=== PATIENT | female | born 2000 | race Hispanic/Latino ===

== ENCOUNTER 2022-05-09 00:21 | Emergency (ER) | payer OTHER ==
[~2022-05-09] VITALS: Ht 154.9 cm; Wt 59.0 kg
[2022-05-09 00:36] VITALS: BP 127/74
== END 2022-05-09 01:14 | disposition left against medical advice (07) ==
LOC: EDH 00:21
DX: F22 Delusional disorders (principal); Z53.21 Procedure and treatment not carried out due to patient leaving prior to being seen by health care provider
CPT/HCPCS: 99281

== ENCOUNTER 2022-07-27 14:35 | Emergency (ER) | payer MEDICARE ==
[~2022-07-27] VITALS: Ht 160 cm; Wt 72.6 kg
[2022-07-27] MEDS ORDERED: 0.9%NACL 1000ML 1,000 ML IV ONE (15:00)
[2022-07-27 15:30] LABS: BASOPHILS % (AUTO) 0.3 % (0.0-5.0); EOSINOPHILS % (AUTO) 0.1 % (0.0-8.0); HEMATOCRIT 43.1 % (36-48); LYMPHOCYTES % (AUTO) 9.9 % (21.0-51.0); MEAN CORPUSCULAR HEMOGLOBIN 29.9 pg (27.0-33.0); MEAN CORPUSCULAR HGB CONC 32.9 g/dL (32.0-36.0); MEAN CORPUSCULAR VOLUME 90.7 fL (80-100); MONOCYTES % (AUTO) 5.2 % (3.0-13.0); NEUTROPHILS % (AUTO) 84.1 % (40.0-77.0); PLATELET COUNT (AUTO) 399 K/uL (130-400); RED BLOOD CELL COUNT(AUTO) 4.75 MIL/uL (4.00-5.50); RED CELL DISTRIBUTION WIDTH 11.9 % (11.0-15.5); WHITE BLOOD COUNT (AUTO) 11.4 K/uL (4.8-10.8)
[2022-07-27 15:49] LABS: CARBON DIOXIDE 24 mmol/L (21-32); CHLORIDE 103 mmol/L (101-111); CREATININE 1.2 mg/dL (0.5-1.5); GLOMERULAR FILTR. RATE CALC 66 mL/min (>90); GLUCOSE,RANDOM 145 mg/dL (70-105); POTASSIUM 3.8 mmol/L (3.5-5.1); SODIUM SERUM 139 mmol/L (136-145); UREA NITROGEN, BLOOD 8 mg/dL (7-18)
[2022-07-27 15:53] LABS: ALANINE AMINOTRANSFERASE 21 U/L (12-78); ALBUMIN 4.9 g/dL (3.5-5.0); ASPARTATE AMINOTRANSFERASE 11 U/L (10-37); TOTAL PROTEIN, SERUM 8.3 g/dL (6.0-8.3)
[2022-07-27 16:08] LABS: APPEARANCE,URINE CLOUDY (CLEAR); BILIRUBIN,URINE NEGATIVE (NEGATIVE); COLOR,URINE LIGHT-YELLOW (YELLOW); GLUCOSE, URINE (UA) NEGATIVE (NEGATIVE); KETONES,URINE NEGATIVE (NEGATIVE); LEUKOCYTE ESTERASE ,URINE 250 Leu/uL (NEGATIVE); NITRATE,URINE NEGATIVE (NEGATIVE); OCCULT BLOOD,URINE NEGATIVE (NEGATIVE); PH,URINE 7.5 (5.0-8.0); PROTEIN,URINE NEGATIVE (NEGATIVE); UROBILINOGEN,URINE 0.2 mg/dL (0.2-1.0)
[2022-07-27 16:14] LABS: ACETAMINOPHEN < 10 mcg/mL (10-30); SALICYLATE < 2.8 mg/dL (2.8-20.0)
[2022-07-27 16:14] LABS: AMPHET/METH SCREEN,URINE NEGATIVE (NEGATIVE); BARBITURATE SCREEN, URINE NEGATIVE (NEGATIVE); BENZODIAZEPINES SCREEN,URINE NEGATIVE (NEGATIVE); CANNABINOID SCREEN,URINE NEGATIVE (NEGATIVE); COCAINE SCREEN,URINE NEGATIVE (NEGATIVE); OPIATE SCREEN,URINE NEGATIVE (NEGATIVE); PHENCYCLIDINE SCREEN,URINE NEGATIVE (NEGATIVE)
[2022-07-27 16:36] LABS: BACTERIA,URINE FEW /HPF (None Seen); SQUAMOUS EPITHELIAL CELL,UR MANY /HPF (0-2)
[2022-07-27] MEDS ORDERED: CEPH500C2 PO (16:42)
[2022-07-27 17:56] VITALS: BP 123/78
== END 2022-07-27 18:35 | disposition home or self-care (01) ==
LOC: EDH 14:35
DX: N39.0 Urinary tract infection, site not specified (principal); E86.0 Dehydration; F20.9 Schizophrenia, unspecified
CPT/HCPCS: 99283; 96360; 96361; 80053; 80305; 84703; 85025; 87088; 36415; 81001; G0481; J7030

== ENCOUNTER 2022-08-15 17:56 | Emergency (ER) | payer MEDICARE ==
[~2022-08-15] VITALS: Ht 152.4 cm; Wt 46.7 kg
[~2022-08-15 17:56] MED LIST: CEPH500C2 PO
[2022-08-15 18:43] LABS: APPEARANCE,URINE CLEAR (CLEAR); BILIRUBIN,URINE NEGATIVE (NEGATIVE); COLOR,URINE COLORLESS (YELLOW); GLUCOSE, URINE (UA) NEGATIVE (NEGATIVE); KETONES,URINE NEGATIVE (NEGATIVE); LEUKOCYTE ESTERASE ,URINE NEGATIVE Leu/uL (NEGATIVE); NITRATE,URINE NEGATIVE (NEGATIVE); OCCULT BLOOD,URINE MODERATE (NEGATIVE); PH,URINE 7.5 (5.0-8.0); PROTEIN,URINE NEGATIVE (NEGATIVE); UROBILINOGEN,URINE 0.2 mg/dL (0.2-1.0)
[2022-08-15 18:49] LABS: HCG,QUALITATIVE URINE NEGATIVE (NEGATIVE)
[2022-08-15 18:54] LABS: BACTERIA,URINE RARE /HPF (None Seen); RBC,URINE 0-1 /HPF (0-1); SQUAMOUS EPITHELIAL CELL,UR RARE /HPF (0-2)
[2022-08-15] MEDS ORDERED: ONDANSETRON ODT 4MG TAB SL ONE (20:30)
[2022-08-15 20:54] LABS: BASOPHILS % (AUTO) 0.4 % (0.0-5.0); EOSINOPHILS % (AUTO) 1.1 % (0.0-8.0); LYMPHOCYTES % (AUTO) 34.7 % (21.0-51.0); MEAN CORPUSCULAR HEMOGLOBIN 30.2 pg (27.0-33.0); MEAN CORPUSCULAR HGB CONC 33.3 g/dL (32.0-36.0); MEAN CORPUSCULAR VOLUME 90.7 fL (80-100); MONOCYTES % (AUTO) 8.5 % (3.0-13.0); NEUTROPHILS % (AUTO) 54.9 % (40.0-77.0); PLATELET COUNT (AUTO) 330 K/uL (130-400); RED BLOOD CELL COUNT(AUTO) 4.41 MIL/uL (4.00-5.50); RED CELL DISTRIBUTION WIDTH 12.1 % (11.0-15.5); WHITE BLOOD COUNT (AUTO) 8.2 K/uL (4.8-10.8)
[2022-08-15 21:14] LABS: CREATININE 0.8 mg/dL (0.5-1.5); POTASSIUM 3.4 mmol/L (3.5-5.1)
[2022-08-15 21:21] LABS: ALBUMIN 4.1 g/dL (3.5-5.0); TOTAL PROTEIN, SERUM 7.5 g/dL (6.0-8.3)
[2022-08-15] MEDS ORDERED: ONDA-104 PO (21:38)
[2022-08-15 21:40] VITALS: BP 112/65
== END 2022-08-15 21:44 | disposition home or self-care (01) ==
LOC: EDH 17:56
DX: T43.211A Poisoning by selective serotonin and norepinephrine reuptake inhibitors, accidental (unintentional), initial encounter (principal); R11.2 Nausea with vomiting, unspecified; F20.9 Schizophrenia, unspecified; F32.A Depression, unspecified; F41.9 Anxiety disorder, unspecified; Z59.00 Homelessness unspecified; Z59.7 Insufficient social insurance and welfare support; Y92.89 Other specified places as the place of occurrence of the external cause
CPT/HCPCS: 36415; 80053; 81001; 81025; 85025

== ENCOUNTER 2022-09-06 13:17 | Emergency (ER) | payer MEDICARE ==
[~2022-09-06] VITALS: Ht 149.9 cm; Wt 63.5 kg
[~2022-09-06 13:17] MED LIST changes: +BENZ0.5T6 PO; +BREX0.5T PO; -CEPH500C2 PO; +HYDR-3421 PO; +LEVE500T19 PO; +PROP40TA7 PO
[2022-09-06 14:17] LABS: CREATININE 1.1 mg/dL (0.5-1.5); POTASSIUM 4.2 mmol/L (3.5-5.1)
[2022-09-06 14:22] LABS: ALBUMIN 4.2 g/dL (3.5-5.0); TOTAL PROTEIN, SERUM 7.7 g/dL (6.0-8.3)
[2022-09-06 14:23] LABS: CREATINE KINASE, TOTAL 310 U/L (21-232)
[2022-09-06 14:29] LABS: ACETAMINOPHEN < 1 mcg/mL (10-30); SALICYLATE < 2.8 mg/dL (2.8-20.0)
[2022-09-06 14:31] LABS: APPEARANCE,URINE CLEAR (CLEAR); BILIRUBIN,URINE NEGATIVE (NEGATIVE); COLOR,URINE LIGHT-YELLOW (YELLOW); GLUCOSE, URINE (UA) NEGATIVE (NEGATIVE); KETONES,URINE NEGATIVE (NEGATIVE); LEUKOCYTE ESTERASE ,URINE 25 Leu/uL (NEGATIVE); NITRATE,URINE NEGATIVE (NEGATIVE); OCCULT BLOOD,URINE NEGATIVE (NEGATIVE); PROTEIN,URINE NEGATIVE (NEGATIVE); UROBILINOGEN,URINE 0.2 mg/dL (0.2-1.0)
[2022-09-06 14:39] LABS: AMPHET/METH SCREEN,URINE NEGATIVE (NEGATIVE); BARBITURATE SCREEN, URINE NEGATIVE (NEGATIVE); BENZODIAZEPINES SCREEN,URINE NEGATIVE (NEGATIVE); CANNABINOID SCREEN,URINE NEGATIVE (NEGATIVE); COCAINE SCREEN,URINE NEGATIVE (NEGATIVE); OPIATE SCREEN,URINE NEGATIVE (NEGATIVE); PHENCYCLIDINE SCREEN,URINE NEGATIVE (NEGATIVE)
[2022-09-06 14:50] LABS: BASOPHILS % (AUTO) 0.3 % (0.0-5.0); EOSINOPHILS % (AUTO) 2.5 % (0.0-8.0); HEMATOCRIT 42.3 % (36-48); LYMPHOCYTES % (AUTO) 12.5 % (21.0-51.0); MEAN CORPUSCULAR HEMOGLOBIN 30.6 pg (27.0-33.0); MEAN CORPUSCULAR HGB CONC 32.6 g/dL (32.0-36.0); MEAN CORPUSCULAR VOLUME 93.8 fL (80-100); MONOCYTES % (AUTO) 4.8 % (3.0-13.0); NEUTROPHILS % (AUTO) 79.3 % (40.0-77.0); PLATELET COUNT (AUTO) 361 K/uL (130-400); RED BLOOD CELL COUNT(AUTO) 4.51 MIL/uL (4.00-5.50); RED CELL DISTRIBUTION WIDTH 12.5 % (11.0-15.5); WHITE BLOOD COUNT (AUTO) 13.6 K/uL (4.8-10.8)
[2022-09-06 14:58] LABS: BACTERIA,URINE FEW /HPF (None Seen); MUCUS,URINE RARE LPF (None Seen); RBC,URINE 0-1 /HPF (0-1); SQUAMOUS EPITHELIAL CELL,UR FEW /HPF (0-2)
[2022-09-06] MEDS ORDERED: LORAZEPAM 2 MG/ML 1 ML VIAL ONE (15:08)
[2022-09-06] MEDS ORDERED: LORAZEPAM 2 MG/ML 1 ML VIAL IVP ONE (15:30)
[2022-09-06 18:28] VITALS: BP 136/87
== END 2022-09-06 18:53 | disposition home or self-care (01) ==
LOC: EDH 13:17
DX: F99 Mental disorder, not otherwise specified (principal); F31.9 Bipolar disorder, unspecified
CPT/HCPCS: 99284; 82550; 80053; 80305; 85025; 81001; 36415; 96374; 93005; G0481; J2060

== ENCOUNTER 2023-01-21 19:53 | Emergency (ER) | payer MEDICARE ==
[~2023-01-21] VITALS: Ht 157.5 cm; Wt 72.6 kg
[2023-01-21] MEDS ORDERED: ACETAMINOPHEN 500 MG TABLET PO ONE (21:00)
[2023-01-21 21:03] LABS: BASOPHILS # (AUTO) 0.04 K/uL (0.00-0.20); BASOPHILS % (AUTO) 0.4 % (0.0-5.0); EOSINOPHILS # (AUTO) 0.23 K/uL (0.00-0.70); EOSINOPHILS % (AUTO) 2.1 % (0.0-8.0); HEMATOCRIT 44.6 % (36-48); IMMATURE GRANULOCYTE ABSOLUTE 0.05 K/uL (0-1); LYMPHOCYTES # (AUTO) 3.1 K/uL (1.0-4.8); LYMPHOCYTES % (AUTO) 27.8 % (21.0-51.0); MEAN CORPUSCULAR HEMOGLOBIN 30.5 pg (27.0-33.0); MEAN CORPUSCULAR HGB CONC 33.6 g/dL (32.0-36.0); MEAN CORPUSCULAR VOLUME 90.7 fL (80-100); MONOCYTES # (AUTO) 0.6 K/uL (0.1-1.0); MONOCYTES % (AUTO) 5.6 % (3.0-13.0); NEUTROPHILS % (AUTO) 63.6 % (40.0-77.0); PLATELET COUNT (AUTO) 376 K/uL (130-400); RED BLOOD CELL COUNT(AUTO) 4.92 MIL/uL (4.00-5.50); RED CELL DISTRIBUTION WIDTH 12.6 % (11.0-15.5)
[2023-01-21 21:12] LABS: CREATININE 0.9 mg/dL (0.5-1.5); POTASSIUM 3.6 mmol/L (3.5-5.1)
[2023-01-21 21:17] LABS: ALBUMIN 4.2 g/dL (3.5-5.0); BILIRUBIN,TOTAL 0.5 mg/dL (0.2-1.0); TOTAL PROTEIN, SERUM 8.5 g/dL (6.0-8.3)
[2023-01-21 22:21] VITALS: BP 134/56; PULSE 98; RESP 18; O2SAT 100
== END 2023-01-21 22:21 | disposition home or self-care (01) ==
LOC: EDH 19:53
DX: F20.9 Schizophrenia, unspecified (principal); R51.9 Headache, unspecified; R56.9 Unspecified convulsions; Z79.899 Other long term (current) drug therapy
CPT/HCPCS: 36415; 80053; 84703; 85025

== ENCOUNTER 2023-04-26 07:28 | Emergency (ER) | payer OTHER, MEDICARE ==
[~2023-04-26] VITALS: Ht 157.5 cm; Wt 85.3 kg
[2023-04-26] MEDS: ACETAMINOPHEN 500 MG TABLET PO ONE (09:43)
[2023-04-26] MEDS: CYCLOBENZAPRINE HCL 10 MG TABLET PO ONE (09:43)
[2023-04-26] MEDS ORDERED: CYCL-309 PO (10:23)
[2023-04-26 10:47] VITALS: BP 111/63; PULSE 82; RESP 18; O2SAT 100
== END 2023-04-26 10:51 | disposition home or self-care (01) ==
LOC: EDH 07:28
DX: S39.012A Strain of muscle, fascia and tendon of lower back, initial encounter (principal); F20.9 Schizophrenia, unspecified; Z79.899 Other long term (current) drug therapy; V89.2XXA Person injured in unspecified motor-vehicle accident, traffic, initial encounter; Y93.89 Activity, other specified; Y92.89 Other specified places as the place of occurrence of the external cause; Y99.8 Other external cause status
CPT/HCPCS: 72100

== ENCOUNTER 2023-09-29 17:31 | Emergency (ER) | payer MEDICARE ==
[~2023-09-29] VITALS: Ht 154.9 cm; Wt 68.0 kg
[~2023-09-29 17:31] MED LIST changes: +BENZ0.5T44 PO; -BENZ0.5T6 PO; +CYCL-309 PO
[2023-09-29 18:11] LABS: BASOPHILS # (AUTO) 0.02 K/uL (0.00-0.20); BASOPHILS % (AUTO) 0.2 % (0.0-5.0); HEMATOCRIT 39.1 % (36-48); IMMATURE GRANULOCYTE ABSOLUTE 0.05 K/uL (0-1); LYMPHOCYTES # (AUTO) 2.6 K/uL (1.0-4.8); LYMPHOCYTES % (AUTO) 26.7 % (21.0-51.0); MEAN CORPUSCULAR HEMOGLOBIN 29.5 pg (27.0-33.0); MEAN CORPUSCULAR HGB CONC 33.8 g/dL (32.0-36.0); MEAN CORPUSCULAR VOLUME 87.3 fL (80-100); MONOCYTES # (AUTO) 0.7 K/uL (0.1-1.0); MONOCYTES % (AUTO) 7.5 % (3.0-13.0); NEUTROPHILS # (AUTO) 6.2 K/uL (1.8-7.7); NEUTROPHILS % (AUTO) 63.1 % (40.0-77.0); PLATELET COUNT (AUTO) 349 K/uL (130-400); RED BLOOD CELL COUNT(AUTO) 4.48 MIL/uL (4.00-5.50); RED CELL DISTRIBUTION WIDTH 12.3 % (11.0-15.5); WHITE BLOOD COUNT (AUTO) 9.9 K/uL (4.8-10.8)
[2023-09-29 18:23] LABS: POTASSIUM 3.9 mmol/L (3.5-5.1)
[2023-09-29 19:37] VITALS: BP 127/76; PULSE 103; RESP 18; O2SAT 100
== END 2023-09-29 20:50 | disposition home or self-care (01) ==
LOC: EDH 17:31
DX: R42 Dizziness and giddiness (principal); Z79.899 Other long term (current) drug therapy
CPT/HCPCS: 36415; 80048; 84703; 85025

== ENCOUNTER 2023-12-25 12:55 | Emergency (ER) | payer MEDICARE ==
[~2023-12-25] VITALS: Ht 152.4 cm; Wt 68.0 kg
[2023-12-25] MEDS: metoCLOPRAmide 10 MG/2 ML VIAL IV ONE (14:18)
[2023-12-25] MEDS: 0.9%NACL 1000ML 1,000 ML IV ONE (14:18)
[2023-12-25 14:19] LABS: BASOPHILS # (AUTO) 0.04 K/uL (0.00-0.20); BASOPHILS % (AUTO) 0.3 % (0.0-5.0); EOSINOPHILS # (AUTO) 0.25 K/uL (0.00-0.70); EOSINOPHILS % (AUTO) 1.9 % (0.0-8.0); HEMATOCRIT 40.5 % (36-48); IMMATURE GRANULOCYTE ABSOLUTE 0.05 K/uL (0-1); LYMPHOCYTES # (AUTO) 2.8 K/uL (1.0-4.8); LYMPHOCYTES % (AUTO) 21.1 % (21.0-51.0); MEAN CORPUSCULAR HEMOGLOBIN 28.6 pg (27.0-33.0); MEAN CORPUSCULAR HGB CONC 32.8 g/dL (32.0-36.0); MEAN CORPUSCULAR VOLUME 87.1 fL (79-99); MONOCYTES # (AUTO) 0.8 K/uL (0.1-1.0); NEUTROPHILS # (AUTO) 9.2 K/uL (1.8-7.7); NEUTROPHILS % (AUTO) 70.3 % (40.0-77.0); PLATELET COUNT (AUTO) 214 K/uL (130-400); RED BLOOD CELL COUNT(AUTO) 4.65 MIL/uL (4.00-5.50); RED CELL DISTRIBUTION WIDTH 12.4 % (11.0-15.5); WHITE BLOOD COUNT (AUTO) 13.1 K/uL (4.8-10.8)
[2023-12-25 14:32] LABS: CREATININE 0.8 mg/dL (0.5-1.0); POTASSIUM 3.8 mmol/L (3.5-5.1)
[2023-12-25] MEDS ORDERED: DICY20TA2 PO (15:30)
[2023-12-25 15:35] VITALS: BP 126/78; PULSE 99; RESP 20; TEMP 98.3; O2SAT 98
== END 2023-12-25 16:06 | disposition home or self-care (01) ==
LOC: EDH 12:55
DX: E86.0 Dehydration (principal); K52.9 Noninfective gastroenteritis and colitis, unspecified; Z79.899 Other long term (current) drug therapy
CPT/HCPCS: 99283; 96374; 96361; 80048; 83690; 85025; 36415; J7030; J2765

== ENCOUNTER 2023-12-31 20:00 | Emergency (ER) | payer MEDICARE ==
[~2023-12-31] VITALS: Ht 154.9 cm; Wt 88.5 kg
[~2023-12-31 20:00] MED LIST changes: +DICY20TA2 PO
[2023-12-31 20:23] VITALS: BP 150/91; PULSE 96; RESP 16; TEMP 98.3; O2SAT 100
[2023-12-31] MEDS ORDERED: ONDA-243 PO (20:25)
[2023-12-31] MEDS: DICYCLOMINE HCL 20 MG TAB PO ONE (20:54)
[2023-12-31] MEDS: ondanSETRON ODT 4MG TAB SL ONE (20:54)
[2023-12-31] MEDS: acetaMINOPHEN 500 MG TABLET PO ONE (20:55)
== END 2023-12-31 21:01 | disposition home or self-care (01) ==
LOC: EDH 20:00
DX: K52.9 Noninfective gastroenteritis and colitis, unspecified (principal); F31.9 Bipolar disorder, unspecified; F41.9 Anxiety disorder, unspecified; Z79.899 Other long term (current) drug therapy
CPT/HCPCS: 81025

== ENCOUNTER 2024-02-09 12:03 | Emergency (ER) | payer OTHER, MEDICARE ==
[~2024-02-09] VITALS: Ht 149.9 cm; Wt 65.8 kg
[~2024-02-09 12:03] MED LIST changes: +ONDA-243 PO
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
[2024-02-09] MEDS: acetaMINOPHEN 500 MG TABLET PO ONE (12:40)
[2024-02-09] MEDS ORDERED: IBUP-2077 PO (14:36)
[2024-02-09] MEDS ORDERED: CYCL-309 PO (14:36)
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
[2024-02-09 15:01] VITALS: BP 113/78; PULSE 89; RESP 16; TEMP 98.4; O2SAT 98
== END 2024-02-09 15:03 | disposition home or self-care (01) ==
LOC: EDH 12:03
DX: S16.1XXA Strain of muscle, fascia and tendon at neck level, initial encounter (principal); S39.012A Strain of muscle, fascia and tendon of lower back, initial encounter; F31.9 Bipolar disorder, unspecified; Z79.899 Other long term (current) drug therapy; V49.9XXA Car occupant (driver) (passenger) injured in unspecified traffic accident, initial encounter; Y93.89 Activity, other specified; Y92.488 Other paved roadways as the place of occurrence of the external cause; Y99.8 Other external cause status
CPT/HCPCS: 36415; 72040; 72100; 81025; 99284

== ENCOUNTER 2024-04-06 23:13 | Emergency (ER) | payer MEDICARE ==
[~2024-04-06] VITALS: Ht 154.9 cm; Wt 70.3 kg
[~2024-04-06 23:13] MED LIST changes: +IBUP-2077 PO
[2024-04-06 23:14] VITALS: BP 133/80; PULSE 80; RESP 20; TEMP 99.6
[2024-04-06] MEDS ORDERED: AZIT250T9 PO (23:46)
[2024-04-06] MEDS ORDERED: METH4TAB3 PO (23:46)
--- NOTE | 2024-04-06 23:46 | ERN ---
General Chief Complaint: Cough Stated Complaint: COUGH Time Seen by MD: 23:18 Time Seen by Midlevel: 23:18 Source: patient History of Present Illness Initial Comments Patient is a 23-year-old female presenting to the emergency department for evaluation of a cough that has been ongoing for the last week. No fever, chills, or any other symptoms reported at this time. Patient reports her partner is sick with similar symptoms. Patient has not seen a primary care doctor for this issue and has not taken any [id number] medications. Allergies: Coded Allergies: No Known Drug Allergies (Unverified Allergy, Unknown, 07/27/22) Home Meds Active Scripts Methylprednisolone (Medrol) 4 Mg Tab.ds.pk, 1 TAB PO AD for 6 Days, #21 TAB 0 Refills 6 on day 1 then reduce by one tablet daily until gone Prov:IRENE CASTELLON 04/06/24 Azithromycin (Azithromycin) 250 Mg Tablet, 1 TAB PO AD for 5 Days, #6 TAB 0 Refills 2 the first day followed by 1 for days 2-5 Prov:IRENE CASTELLON 04/06/24 Ibuprofen (Ibuprofen 800 mg Tab) 800 Mg Tab, 800 MG PO Q8H PRN for fever or pain, #30 TAB 0 Refills Prov:TERESITA SHELTON NP 02/09/24 Cyclobenzaprine HCl (Cyclobenzaprine HCl) 10 Mg Tablet, 1 TAB PO TID for muscle spasms for 10 Days, #30 TAB 0 Refills Prov:TERESITA SHELTON NP 02/09/24 Ondansetron (Ondansetron Odt) 4 Mg Tab.rapdis, 1 TAB PO Q6HPRN PRN for nausea/vomiting for 3 Days, #9 TAB 0 Refills Prov:ERICKA CARDOZA DO 12/31/23 Dicyclomine HCl (Bentyl) 20 Mg Tab, 1 TAB PO BID for irritable bowel symptoms for 5 Days, #10 TAB 0 Refills Prov:KALPESH HERNANDEZ MD 12/25/23 Cyclobenzaprine HCl (Cyclobenzaprine HCl) 10 Mg Tablet, 10 MG PO Q6HPRN for MUSCLE SPASM, #30 TAB Prov:TERESITA SHELTON NP 04/26/23 Hydroxyzine HCl (Hydroxyzine HCl) 25 Mg Tablet, 25 MG PO TIDP PRN for ANXIETY/AGITATION, #90 TAB 0 Refills Prov:WAI REYES COTTON PRESSER 09/04/22 Reported Medications Benztropine Mesylate (Benztropine Mesylate) 0.5 Mg Tablet, 0.5 MG PO BID, TAB 09/02/22 Brexpiprazole (Rexulti) 0.5 Mg Tablet, 0.5 MG PO DAILY, TAB 09/01/22 Levetiracetam (Levetiracetam) 500 Mg Tablet, 500 MG PO BID, TAB 09/01/22 Propranolol HCl (Propranolol HCl) 40 Mg Tablet, 40 MG PO BID, TAB 09/01/22 Past Medical History Past Medical History: Bipolar, Other Medical History Other: BEHAVIOR PROBLEMS, MENTAL DELAY Past Surgical History: None Social History Social History: Lives with family, Other Female( History) History: Not Applicable ROS Dictation CONSTITUTIONAL: Negative except for HPI HEAD/FACE: Negative except for HPI EENT: Negative except for HPI RESPIRATORY: Negative except for HPI GASTROINTESTINAL/ABDOMINAL: Negative except for HPI GENITOURINARY: Negative except for HPI MUSCULOSKELETAL: Negative except for HPI INTEGUMENTARY: Negative except for HPI NEUROLOGICAL/PSYCH: Negative except for HPI HEMATOLOGIC/LYMPHATIC: Negative except for HPI All Systems Negative, Except as noted above. 13 point review of systems assessed and all negative except for above. Physical Exam Physical Exam Dictation Vital Signs reviewed General Appearance: Alert, oriented x 3, no acute distress, well developed, nourished. Head and Face: non-traumatic. Eyes: PERRL, pink conjunctivas, eyelid no trauma, anterior chamber with arcus senilis. Ears: Pinnas intact and no signs of trauma or erythema ear canals clear and no discharge TM no erythema Nose: No discharge, no bleeding. Oropharynx: Mouth normal, tongue pink, pharynx clear,no erythema, tonsils no exudates, no abscesses noted, mucous membrane moist Neck: Supple, non-tender, no thyromegaly, no masses, no JVD, no bruits Breast:Deferred Chest:No tenderness, no crepitus, no paradoxical movement, no retractions Lungs:Clear, well-ventilated, symmetric, no rales, no wheezing, no rhonchi, no stridor, good breath sounds bilaterally Heart: Regular rate, regular rhythm, no murmur, no gallops Vascular: no peripheral edema, Abdomen: Soft, positive bowel sounds, nondistended, no guarding, nontender, no rebound, no masses no hepatomegaly, no splenomegaly, no Maradiaga's sign, no hernias. Rectal: Deferred Genital: Deferred Neurological: Normal speech, motor function intact, sensory function intact Musculoskeletal: Neck nontender, full range of motion, back nontender, full range of motion, Extremities: nontender, full range of motion Skin: Color pink, dry, no turgor, no rash, no lacerations, no abrasions, no contusions. Lymphatic: Deferred MDM MDM: Differential diagnosis: Pneumonia, bronchitis, pneumonitis There are no social concerns with this patient. Prescription drug management Prescriptions will include: Azithromycin and Medrol pack Medical management and examination interpretation discussions were had by me with other qualified healthcare professionals as indicated for the patient's care. ED Course Orders Procedure Category Date Status Time Chest 1vw RAD 04/06/24 Taken 23:32 Vital Signs Date Time Temp Pulse Resp B/P (MAP) Pulse Ox O2 Delivery O2 Flow Rate FiO2 04/06/24 23:14 99.7 80 20 133/80 99 Room Air DX & DISP Disposition: Discharge Departure Impression: Primary Impression: Acute bronchitis Condition: Stable Scripts Methylprednisolone (Medrol) 4 Mg Tab.ds.pk 1 TAB PO AD for 6 Days, #21 TAB 0 Refills 6 on day 1 then reduce by one tablet daily until gone Prov: IRENE CASTELLON 04/06/24 Azithromycin (Azithromycin) 250 Mg Tablet 1 TAB PO AD for 5 Days, #6 TAB 0 Refills 2 the first day followed by 1 for days 2-5 Prov: IRENE CASTELLON 04/06/24 Referrals: LINDEN ROTH MD (PCP) I have reviewed the case, and I agree with, Diagnosis and Plan I performed the substantive portion of the visit. I have reviewed and personally made and approve the management plan that is documented in the note by myself or the GABRIELA. I acknowledge for responsibility for the patient's man agement plan. IRENE CASTELLON Apr 06, 2024 23:46
--- NOTE | 2024-04-07 08:26 | HMCIMG ---
PORTABLE CHEST RADIOGRAPH INDICATION: cough r/o pna COMPARISON: 09/01/2022 CT chest FINDINGS: Heart size is normal. The pulmonary vascularity and halle appear normal. No abnormal pulmonary parenchymal opacity or consolidation identified. No significant pleural effusion noted. No pneumothorax detected. IMPRESSION: No radiographic evidence for any acute cardiopulmonary process.
== END 2024-04-07 00:09 | disposition home or self-care (01) ==
LOC: EDH 23:13
DX: J20.9 Acute bronchitis, unspecified (principal); Z79.899 Other long term (current) drug therapy
CPT/HCPCS: 71045; 99283

== ENCOUNTER 2024-04-25 20:38 | Emergency (ER) | payer MEDICARE ==
[~2024-04-25] VITALS: Ht 152.4 cm; Wt 69.9 kg
[~2024-04-25 20:38] MED LIST changes: +AZIT250T9 PO; +METH4TAB3 PO
[2024-04-25 22:41] LABS: BASOPHILS # (AUTO) 0.04 K/uL (0.00-0.20); BASOPHILS % (AUTO) 0.4 % (0.0-5.0); EOSINOPHILS # (AUTO) 0.32 K/uL (0.00-0.70); EOSINOPHILS % (AUTO) 3.3 % (0.0-8.0); HEMATOCRIT 38.8 % (36-48); IMMATURE GRANULOCYTE ABSOLUTE 0.03 K/uL (0-1); LYMPHOCYTES # (AUTO) 2.9 K/uL (1.0-4.8); LYMPHOCYTES % (AUTO) 29.8 % (21.0-51.0); MEAN CORPUSCULAR HEMOGLOBIN 28.1 pg (27.0-33.0); MEAN CORPUSCULAR HGB CONC 32.7 g/dL (32.0-36.0); MEAN CORPUSCULAR VOLUME 85.8 fL (79-99); MONOCYTES # (AUTO) 0.7 K/uL (0.1-1.0); MONOCYTES % (AUTO) 6.9 % (3.0-13.0); NEUTROPHILS # (AUTO) 5.8 K/uL (1.8-7.7); NEUTROPHILS % (AUTO) 59.3 % (40.0-77.0); PLATELET COUNT (AUTO) 420 K/uL (130-400); RED BLOOD CELL COUNT(AUTO) 4.52 MIL/uL (4.00-5.50); RED CELL DISTRIBUTION WIDTH 13.2 % (11.0-15.5); WHITE BLOOD COUNT (AUTO) 9.7 K/uL (4.8-10.8)
[2024-04-25 22:52] LABS: CREATININE 0.8 mg/dL (0.5-1.0); POTASSIUM 4.1 mmol/L (3.5-5.1)
[2024-04-25 23:01] LABS: APPEARANCE,URINE CLEAR (CLEAR); BILIRUBIN,URINE NEGATIVE (NEGATIVE); COLOR,URINE COLORLESS (YELLOW); GLUCOSE, URINE (UA) NEGATIVE (NEGATIVE); KETONES,URINE NEGATIVE (NEGATIVE); LEUKOCYTE ESTERASE ,URINE NEGATIVE Leu/uL (NEGATIVE); NITRATE,URINE NEGATIVE (NEGATIVE); OCCULT BLOOD,URINE NEGATIVE (NEGATIVE); PROTEIN,URINE NEGATIVE (NEGATIVE); UROBILINOGEN,URINE 0.2 mg/dL (0.2-1.0)
[2024-04-25 23:15] LABS: ADD UA MICROSCOPIC NO
[2024-04-25 23:16] LABS: HCG,QUALITATIVE URINE NEGATIVE (NEGATIVE)
[2024-04-25 23:19] LABS: ALBUMIN 3.8 g/dL (3.5-5.0); BILIRUBIN,DIRECT 0.1 mg/dL (0.0-0.3); BILIRUBIN,TOTAL 0.5 mg/dL (0.2-1.0); TOTAL PROTEIN, SERUM 7.8 g/dL (6.0-8.3)
[2024-04-26] MEDS ORDERED: FAMO-136 PO (00:20)
[2024-04-26] MEDS ORDERED: ONDA-243 PO (00:20)
--- NOTE | 2024-04-26 00:20 | ERN ---
General Chief Complaint: Nausea,Vomiting,Diarrhea Stated Complaint: N/V/D Time Seen by MD: 20:41 Time Seen by Midlevel: 20:41 Source: patient History of Present Illness Initial Comments Patient is a 23-year-old female presenting to the emergency department with nausea vomiting and diarrhea that started yesterday. Significant other is sick with similar symptoms. No other symptoms reported at this time. Allergies: Coded Allergies: No Known Drug Allergies (Unverified Allergy, Unknown, 07/27/22) Home Meds Active Scripts Famotidine (Pepcid) 20 Mg Tablet, 1 TAB PO BID for 30 Days, #60 TAB 0 Refills Prov:IRENE CASTELLON 04/26/24 Ondansetron (Ondansetron Odt) 4 Mg Tab.rapdis, 4 MG PO BID for 7 Days, #14 TAB Prov:IRENE CASTELLON 04/26/24 Methylprednisolone (Medrol) 4 Mg Tab.ds.pk, 1 TAB PO AD for 6 Days, #21 TAB 0 Refills 6 on day 1 then reduce by one tablet daily until gone Prov:IRENE CASTELLON 04/06/24 Azithromycin (Azithromycin) 250 Mg Tablet, 1 TAB PO AD for 5 Days, #6 TAB 0 Refills 2 the first day followed by 1 for days 2-5 Prov:IRENE CASTELLON 04/06/24 Ibuprofen (Ibuprofen 800 mg Tab) 800 Mg Tab, 800 MG PO Q8H PRN for fever or pain, #30 TAB 0 Refills Prov:TERESITA SHELTON NP 02/09/24 Cyclobenzaprine HCl (Cyclobenzaprine HCl) 10 Mg Tablet, 1 TAB PO TID for muscle spasms for 10 Days, #30 TAB 0 Refills Prov:TERESITA SHELTON NP 02/09/24 Ondansetron (Ondansetron Odt) 4 Mg Tab.rapdis, 1 TAB PO Q6HPRN PRN for nausea/vomiting for 3 Days, #9 TAB 0 Refills Prov:ERICKA CARDOZA DO 12/31/23 Dicyclomine HCl (Bentyl) 20 Mg Tab, 1 TAB PO BID for irritable bowel symptoms for 5 Days, #10 TAB 0 Refills Prov:KALPESH HERNANDEZ MD 12/25/23 Cyclobenzaprine HCl (Cyclobenzaprine HCl) 10 Mg Tablet, 10 MG PO Q6HPRN for MUSCLE SPASM, #30 TAB Prov:TERESITA SHELTON PREHEMMER 04/26/23 Hydroxyzine HCl (Hydroxyzine HCl) 25 Mg Tablet, 25 MG PO TIDP PRN for ANXIETY/AGITATION, #90 TAB 0 Refills Prov:WAI REYES Ramo TURN DOWN WORKER 09/04/22 Reported Medications Benztropine Mesylate (Benztropine Mesylate) 0.5 Mg Tablet, 0.5 MG PO BID, TAB 09/02/22 Brexpiprazole (Rexulti) 0.5 Mg Tablet, 0.5 MG PO DAILY, TAB 09/01/22 Levetiracetam (Levetiracetam) 500 Mg Tablet, 500 MG PO BID, TAB 09/01/22 Propranolol HCl (Propranolol HCl) 40 Mg Tablet, 40 MG PO BID, TAB 09/01/22 Past Medical History Past Medical History: Bipolar, Other Medical History Other: BEHAVIOR PROBLEMS, MENTAL DELAY Past Surgical History: None Social History Social History: Lives with family, Other Female( History) History: Not Applicable ROS Dictation CONSTITUTIONAL: Negative except for HPI HEAD/FACE: Negative except for HPI EENT: Negative except for HPI RESPIRATORY: Negative except for HPI GASTROINTESTINAL/ABDOMINAL: Negative except for HPI GENITOURINARY: Negative except for HPI MUSCULOSKELETAL: Negative except for HPI INTEGUMENTARY: Negative except for HPI NEUROLOGICAL/PSYCH: Negative except for HPI HEMATOLOGIC/LYMPHATIC: Negative except for HPI All Systems Negative, Except as noted above. 13 point review of systems assessed and all negative except for above. Physical Exam Physical Exam Dictation Vital Signs reviewed General Appearance: Alert, oriented x 3, no acute distress, well developed, nourished. Head and Face: non-traumatic. Eyes: PERRL, pink conjunctivas, eyelid no trauma, anterior chamber with arcus senilis. Ears: Pinnas intact and no signs of trauma or erythema ear canals clear and no discharge TM no erythema Nose: No discharge, no bleeding. Oropharynx: Mouth normal, tongue pink, pharynx clear,no erythema, tonsils no exudates, no abscesses noted, mucous membrane moist Neck: Supple, non-tender, no thyromegaly, no masses, no JVD, no bruits Breast:Deferred Chest:No tenderness, no crepitus, no paradoxical movement, no retractions Lungs:Clear, well-ventilated, symmetric, no rales, no wheezing, no rhonchi, no stridor, good breath sounds bilaterally Heart: Regular rate, regular rhythm, no murmur, no gallops Vascular: no peripheral edema, Abdomen: Soft, positive bowel sounds, nondistended, no guarding, nontender, no rebound, no masses no hepatomegaly, no splenomegaly, no Maradiaga's sign, no hernias. Rectal: Deferred Genital: Deferred Neurological: Normal speech, motor function intact, sensory function intact Musculoskeletal: Neck nontender, full range of motion, back nontender, full range of motion, Extremities: nontender, full range of motion Skin: Color pink, dry, no turgor, no rash, no lacerations, no abrasions, no contusions. Lymphatic: Deferred Results Laboratory and Microbiology Lab and Micro Result Laboratory Tests Test 04/25/24 22:23 04/25/24 22:48 White Blood Count 9.7 K/uL (4.8-10.8) Red Blood Count 4.52 MIL/uL (4.00-5.50) Hemoglobin 12.7 g/dL (12.0-16.0) Hematocrit 38.8 % (36-48) Mean Corpuscular Volume 85.8 fL (79-99) Mean Corpuscular Hemoglobin 28.1 pg (27.0-33.0) Mean Corpuscular Hemoglobin Concent 32.7 g/dL (32.0-36.0) Red Cell Distribution Width 13.2 % (11.0-15.5) Platelet Count 420 K/uL (130-400) H Mean Platelet Volume 9.1 fL (7.5-10.5) Immature Granulocyte % (Auto) 0.3 % (0-1) Neutrophils (%) (Auto) 59.3 % (40.0-77.0) Lymphocytes (%) (Auto) 29.8 % (21.0-51.0) Monocytes (%) (Auto) 6.9 % (3.0-13.0) Eosinophils (%) (Auto) 3.3 % (0.0-8.0) Basophils (%) (Auto) 0.4 % (0.0-5.0) Neutrophils # (Auto) 5.8 K/uL (1.8-7.7) Lymphocytes # (Auto) 2.9 K/uL (1.0-4.8) Monocytes # (Auto) 0.7 K/uL (0.1-1.0) Eosinophils # (Auto) 0.32 K/uL (0.00-0.70) Basophils # (Auto) 0.04 K/uL (0.00-0.20) Absolute Immature Granulocyte (auto 0.03 K/uL (0-1) Nucleated Red Blood Cells 0.0 % (0.0-0.19) Sodium Level 140 mmol/L (136-145) Potassium Level 4.1 mmol/L (3.5-5.1) Chloride Level 104 mmol/L (101-111) Carbon Dioxide Level 29 mmol/L (21-32) Blood Urea Nitrogen 10 mg/dL (7-18) Creatinine 0.8 mg/dL (0.5-1.0) Glomerular Filtration Rate Calc 107 mL/min (>90) Random Glucose 105 mg/dL (70-105) Total Calcium 9.2 mg/dL (8.5-10.1) Total Bilirubin 0.5 mg/dL (0.2-1.0) Direct Bilirubin 0.1 mg/dL (0.0-0.3) Aspartate Amino Transf (AST/SGOT) 20 U/L (10-37) Alanine Aminotransferase (ALT/SGPT) 28 U/L (12-78) Alkaline Phosphatase 143 U/L (50-136) H Total Protein 7.8 g/dL (6.0-8.3) Albumin 3.8 g/dL (3.5-5.0) Lipase 42 U/L (16-77) Urine Color COLORLESS (YELLOW) Urine Appearance CLEAR (CLEAR) Urine pH 6.0 (5.0-8.0) Urine Specific [place] 1.004 (1.001-1.031) Urine Protein NEGATIVE mg/dL (NEGATIVE) Urine Glucose (UA) NEGATIVE mg/dL (NEGATIVE) Urine Ketones NEGATIVE mg/dL (NEGATIVE) Urine Occult Blood NEGATIVE (NEGATIVE) Urine Nitrate NEGATIVE (NEGATIVE) Urine Bilirubin NEGATIVE mg/dL (NEGATIVE) Urine Urobilinogen 0.2 mg/dL (0.2-1.0) Urine Leukocyte Esterase NEGATIVE [place]/uL Urine HCG, Qualitative NEGATIVE (NEGATIVE) Labs Reviewed?: Yes MDM MDM: Differential diagnosis: Gastroenteritis, dehydration, electrolyte abnormality There are no social concerns with this patient. Prescription drug management Prescriptions will include: Zofran and Pepcid Medical management and examination interpretation discussions were had by me with other qualified healthcare professionals as indicated for the patient's care. ED Course Orders Procedure Category Date Status Time Cbc With Differential LAB 04/25/24 Complete 21:50 ,Urine Test LAB 04/25/24 Complete 21:50 Urinalysis Profile LAB 04/25/24 Complete 21:50 Basic Metabolic Panel LAB 04/25/24 Complete 21:50 Hepatic Function Panel LAB 04/25/24 Complete 21:55 Lipase LAB 04/25/24 Complete 21:55 Ondansetron Odt 4mg PHA 04/26/24 Complete Tab (Zofran 4mg Odt) 00:30 Famotidine 20mg Tab PHA 04/26/24 Complete (Pepcid 20mg Tab) 00:30 Current Medications Medications (Trade) Dose Ordered Sig/Jagruti Route PRN Reason Start Time Stop Time Status Last Admin Dose Admin Famotidine (Pepcid 20mg Tab) 20 mg ONCE ONCE PO 04/26/24 00:30 04/26/24 00:31 DC 04/26/24 00:37 Ondansetron HCl (zoFRAN 4MG ODT) 4 mg ONCE ONCE SL 04/26/24 00:30 04/26/24 00:31 DC 04/26/24 00:37 Vital Signs Date Time Temp Pulse Resp B/P (MAP) Pulse Ox O2 Delivery O2 Flow Rate FiO2 04/25/24 20:40 98.4 103 18 147/89 98 Room Air DX & DISP Disposition: Discharge Departure Impression: Primary Impression: Nausea & vomiting Condition: Stable Scripts Famotidine (Pepcid) 20 Mg Tablet 1 TAB PO BID for 30 Days, #60 TAB 0 Refills Prov: IRENE CASTELLON 04/26/24 Ondansetron (Ondansetron Odt) 4 Mg Tab.rapdis 4 MG PO BID for 7 Days, #14 TAB Prov: IRENE CASTELLON 04/26/24 Additional Instructions: Your blood work today is unremarkable. Your urinalysis does not show any evidence of infection. Your electrolytes are normal. Your test was negative. Referrals: LINDEN ROTH MD (PCP) Time of Disposition: 00:18 I have reviewed the case, and I agree with, Diagnosis and Plan I performed the substantive portion of the visit. I have reviewed and personally made and approve the management plan that is documented in the note by myself or the GABRIELA. I acknowledge for responsibility for the patient's management plan. IRENE CASTELLON Apr 26, 2024 00:20
[2024-04-26] MEDS: ondanSETRON ODT 4MG TAB SL ONE (00:37)
[2024-04-26] MEDS: FAMOTIDINE 20MG TAB PO ONE (00:37)
[2024-04-26 00:55] VITALS: BP 138/82; PULSE 94; RESP 16; TEMP 98.8; O2SAT 99
== END 2024-04-26 00:56 | disposition home or self-care (01) ==
LOC: EDH 20:38
DX: R11.2 Nausea with vomiting, unspecified (principal); Z79.899 Other long term (current) drug therapy
CPT/HCPCS: 36415; 80048; 80076; 81003; 81025; 83690; 85025; 99283

== ENCOUNTER 2024-09-21 19:22 | Emergency (ER) | payer MEDICARE, MEDICAID ==
[~2024-09-21] VITALS: Ht 152.4 cm; Wt 93.2 kg
[~2024-09-21 19:22] MED LIST changes: +FAMO-136 PO
--- NOTE | 2024-09-21 19:35 | ERN ---
ED Note History of Present Illness Stated Complaint: DIARRHEA patient has brought in because over the last 1-2 days. The patient has some loose stools some diarrhea. Recently started Keflex for UTI. Denies any fevers or any chills any flank pain any abdominal pain contractions falls trips traumas syncope presyncope weakness dizziness Chief Complaint: Diarrhea Time Seen by MD: 19:26 Allergies: Coded Allergies: No Known Drug Allergies (Unverified Allergy, Unknown, 07/27/22) Home Meds Active Scripts Famotidine (Pepcid) 20 Mg Tablet, 1 TAB PO BID for 30 Days, #60 TAB 0 Refills Prov:IRENE CASTELLON 04/26/24 Ondansetron (Ondansetron Odt) 4 Mg Tab.rapdis, 4 MG PO BID for 7 Days, #14 TAB Prov:IRENE CASTELLON 04/26/24 Methylprednisolone (Medrol) 4 Mg Tab.ds.pk, 1 TAB PO AD for 6 Days, #21 TAB 0 Refills 6 on day 1 then reduce by one tablet daily until gone Prov:IRENE CASTELLON 04/06/24 Azithromycin (Azithromycin) 250 Mg Tablet, 1 TAB PO AD for 5 Days, #6 TAB 0 Refills 2 the first day followed by 1 for days 2-5 Prov:IRENE CASTELLON 04/06/24 Ibuprofen (Ibuprofen 800 mg Tab) 800 Mg Tab, 800 MG PO Q8H PRN for fever or pain, #30 TAB 0 Refills Prov:TERESITA SHELTON NP 02/09/24 Cyclobenzaprine HCl (Cyclobenzaprine HCl) 10 Mg Tablet, 1 TAB PO TID for muscle spasms for 10 Days, #30 TAB 0 Refills Prov:TERESITA SHELTON NP 02/09/24 Ondansetron (Ondansetron Odt) 4 Mg Tab.rapdis, 1 TAB PO Q6HPRN PRN for nausea/vomiting for 3 Days, #9 TAB 0 Refills Prov:ERICKA CARDOZA DO 12/31/23 Dicyclomine HCl (Bentyl) 20 Mg Tab, 1 TAB PO BID for irritable bowel symptoms for 5 Days, #10 TAB 0 Refills Prov:KALPESH HERNANDEZ MD 12/25/23 Cyclobenzaprine HCl (Cyclobenzaprine HCl) 10 Mg Tablet, 10 MG PO Q6HPRN for MUSCLE SPASM, #30 TAB Prov:TERESITA SHELTON Carmencita TRAVEL ASSISTANT 04/26/23 Hydroxyzine HCl (Hydroxyzine HCl) 25 Mg Tablet, 25 MG PO TIDP PRN for A NXIETY/AGITATION, #90 TAB 0 Refills Prov:NIKI REYESRamo Ralph AUTO INSPECTOR 09/04/22 Reported Medications Benztropine Mesylate (Benztropine Mesylate) 0.5 Mg Tablet, 0.5 MG PO BID, TAB 09/02/22 Brexpiprazole (Rexulti) 0.5 Mg Tablet, 0.5 MG PO DAILY, TAB 09/01/22 Levetiracetam (Levetiracetam) 500 Mg Tablet, 500 MG PO BID, TAB 09/01/22 Propranolol HCl (Propranolol HCl) 40 Mg Tablet, 40 MG PO BID, TAB 09/01/22 Past Medical History Past Medical History: Bipolar, Other Additional Past Medical Hx: BEHAVIOR PROBLEMS, MENTAL DELAY Surgical History: None Social History: Lives with family, Other History: Not Applicable : 1 Review of System Dictation Constitutional: Negative for fever,chills, and weight loss Eyes: Negative for injury, pain,redness, and discharge ENT: Negative for injury,pain or swelling Cardiovascular: Negative for chest pain, palpitations, and edema Respiratory: Negative for shortness of breath, cough, and wheezing, Abdomen/GI: Diarrhea Back: Negative for injury and pain : Negative for injury, bleeding and discharge MS/Extremity: Negative for injury and deformity Skin: Negative for rash, and discoloration Neuro: Negative for headache, weakness, numbness, tingling, and seizure Psych: Negative for suicide ideation, homicidal ideation, and hallucinations Initial Vital Sign VS Vital Signs Date Time Temp Pulse Resp B/P (MAP) Pulse Ox O2 Delivery O2 Flow Rate FiO2 09/21/24 19:24 99.0 99 20 130/78 99 Room Air 09/21/24 19:29 0 21 Physical Exam Dictation General: awake, alert, NAD Head/Face: Normocephalic, atraumatic Eyes: PERRL, EOMI, vision at baseline ENT: oral cavity clear, TMs clear, no signs of infection Neck: Trachea midline, supple, no nuchal rigidity Cardiovascular: RRR, normal S1/S2, No MRGs, no JVD Respiratory: CTAB, no respiratory distress, No rales or wheezes Abdomen: Soft, non-tender, non-distended, normal bowel sounds, no guarding or rebound. Skin: Warm, dry, normal turgor, no rash MS/Extremity: Pulses equal, no cyanosis, neurovascular intact, FROM Neuro: COAx4, GCS 15, strength 5/5, CN 2-12 intact, normal cerebellar exam, normal gait, Psych: Normal behavior, mood, and affect normal Results (Laboratory/Radiology) Laboratory/Radiology Laboratory Tests Test 09/21/24 19:48 White Blood Count 14.1 K/uL (4.8-10.8) H Red Blood Count 4.19 MIL/uL (4.00-5.50) Hemoglobin 12.2 g/dL (12.0-16.0) Hematocrit 36.2 % (36-48) Mean Corpuscular Volume 86.4 fL (79-99) Mean Corpuscular Hemoglobin 29.1 pg (27.0-33.0) Mean Corpuscular Hemoglobin Concent 33.7 g/dL (32.0-36.0) Red Cell Distribution Width 14.1 % (11.0-15.5) Platelet Count 416 K/uL (130-400) H Mean Platelet Volume 8.8 fL (7.5-10.5) Immature Granulocyte % (Auto) 0.8 % (0-1) Neutrophils (%) (Auto) 72.9 % (40.0-77.0) Lymphocytes (%) (Auto) 17.5 % (21.0-51.0) L Monocytes (%) (Auto) 6.2 % (3.0-13.0) Eosinophils (%) (Auto) 2.4 % (0.0-8.0) Basophils (%) (Auto) 0.2 % (0.0-5.0) Neutrophils # (Auto) 10.3 K/uL (1.8-7.7) H Lymphocytes # (Auto) 2.5 K/uL (1.0-4.8) Monocytes # (Auto) 0.9 K/uL (0.1-1.0) Eosinophils # (Auto) 0.34 K/uL (0.00-0.70) Basophils # (Auto) 0.03 K/uL (0.00-0.20) Absolute Immature Granulocyte (auto 0.11 K/uL (0-1) Nucleated Red Blood Cells 0.1 % (0.0-0.19) Sodium Level 140 mmol/L (136-145) Potassium Level 3.8 mmol/L (3.5-5.1) Chloride Level 105 mmol/L (101-111) Carbon Dioxide Level 28 mmol/L (21-32) Blood Urea Nitrogen 5 mg/dL (7-18) L Creatinine 0.5 mg/dL (0.5-1.0) Glomerular Filtration Rate Calc 136 mL/min (>90) Random Glucose 96 mg/dL (70-105) Total Calcium 9.0 mg/dL (8.5-10.1) Total Bilirubin 0.3 mg/dL (0.2-1.0) Aspartate Amino Transf (AST/SGOT) 21 U/L (10-37) Alanine Aminotransferase (ALT/SGPT) 37 U/L (12-78) Alkaline Phosphatase 191 U/L (50-136) H Total Protein 7.2 g/dL (6.0-8.3) Albumin 2.7 g/dL (3.5-5.0) L ED Course ED Course Orders Procedure Category Date Status Time Cbc With Differential LAB 09/21/24 Complete 19:33 Comprehensive LAB 09/21/24 Complete Metabolic Panel 19:33 ,Urine Test LAB 09/21/24 In Process 19:33 Lactated Ringers PHA 09/21/24 In Process 1000ml (Lactated 20:00 Ondansetron 4mg Inj PHA 09/21/24 In Process (Zofran 4mg Inj) 20:00 Current Medications Medications (Trade) Dose Ordered Sig/Jagruti Route PRN Reason Start Time Stop Time Status Last Admin Dose Admin Lactated Ringer's 1,000 ml @ 0 mls/hr ONCE IV 09/21/24 20:00 09/21/24 23:59 09/21/24 19:50 Ondansetron HCl (zoFRAN 4MG INJ) 4 mg ONCE IVP 09/21/24 20:00 09/21/24 23:59 09/21/24 19:49 Vital Signs Date Time Temp Pulse Resp B/P (MAP) Pulse Ox O2 Delivery O2 Flow Rate FiO2 09/21/24 19:29 98.8 88 17 123/56 98 Room Air* 0 21 09/21/24 19:24 99.0 99 20 130/78 99 Room Air Medical Decision Making MDM MDM: Differential diagnosis: Rationale: Tests considered and ordered secondary to shared decision making in clude: Previous outside records reviewed: Old ER visits. Risk of complication and/or morbidity or mortality of patient management: None Medications-Per medication reconciliation Need for hospitalization: Patient does not meet criteria for hospitalization. Need for emergency major/minor surgery: No There are no social concerns with this patient. Prescription drug management Prescriptions will include symptomatic care Patient's prior external medical records from other ER visits were reviewed by me as indicated. Prior testing and results from previous visits were reviewed. Prior tests were taken into account with medical decision making and resource utilization, independent historian/historians were used to obtain complete medical history. I independently interpreted the test that were performed, results were reviewed by me and considered findings on radiology if ordered. Medical management and examination interpretation discussions were had by me with other qualified healthcare professionals as indicated for the patient's care. DX & DISP Disposition: Discharge Departure Impression: Primary Impression: Acute gastroenteritis Condition: Stable Scripts Ondansetron (Ondansetron Odt) 4 Mg Tab.rapdis 4 MG PO Q6HPRN PRN for NAUSEA for 5 Days, #20 TAB Prov: KAYDEN SPENCER MD 09/21/24 Referrals: LINDEN ROTH MD (PCP) KAYDEN SPENCER MD Sep 21, 2024 19:35
[2024-09-21] MEDS: LACTATED RINGERS 1000ML 1,000 ML IV SCH (19:50)
[2024-09-21 19:56] LABS: IMMATURE GRANULOCYTE ABSOLUTE 0.11 K/uL (0-1); NUCLEATED RED BLOOD CELLS 0.1 % (0.0-0.19); PLATELET COUNT (AUTO) 416 K/uL (130-400); RED BLOOD CELL COUNT(AUTO) 4.19 MIL/uL (4.00-5.50); RED CELL DISTRIBUTION WIDTH 14.1 % (11.0-15.5); WHITE BLOOD COUNT (AUTO) 14.1 K/uL (4.8-10.8)
[2024-09-21 20:04] LABS: CREATININE 0.5 mg/dL (0.5-1.0); GLOMERULAR FILTR. RATE CALC 136.0 mL/min (>90); GLUCOSE,RANDOM 96.0 mg/dL (70-105); SODIUM SERUM 140.0 mmol/L (136-145); UREA NITROGEN, BLOOD 5.0 mg/dL (7-18)
[2024-09-21 20:09] LABS: ASPARTATE AMINOTRANSFERASE 21.0 U/L (10-37); TOTAL PROTEIN, SERUM 7.2 g/dL (6.0-8.3)
[2024-09-21] MEDS ORDERED: ONDA-243 PO (21:55)
[2024-09-21 22:14] VITALS: BP 128/63; PULSE 80; RESP 17; TEMP 98.5; O2SAT 97
== END 2024-09-21 22:26 | disposition home or self-care (01) ==
LOC: EDH 19:22
DX: K52.9 Noninfective gastroenteritis and colitis, unspecified (principal); Z79.899 Other long term (current) drug therapy
CPT/HCPCS: 99283; 96374; 96361; 80053; 85025; 81025; 36415; J7120; J2405

== ENCOUNTER 2024-10-14 11:21 | Emergency (ER) | payer MEDICARE, MEDICAID ==
[~2024-10-14] VITALS: Ht 154.9 cm; Wt 93.9 kg
[2024-10-14 12:11] LABS: IMMATURE GRANULOCYTE ABSOLUTE 0.19 K/uL (0-1); NUCLEATED RED BLOOD CELLS 0.2 % (0.0-0.19); PLATELET COUNT (AUTO) 439 K/uL (130-400); RED BLOOD CELL COUNT(AUTO) 4.27 MIL/uL (4.00-5.50); RED CELL DISTRIBUTION WIDTH 14.0 % (11.0-15.5); WHITE BLOOD COUNT (AUTO) 13.3 K/uL (4.8-10.8)
[2024-10-14 12:15] LABS: GLUCOSE, URINE (UA) NEGATIVE (NEGATIVE); LEUKOCYTE ESTERASE ,URINE 500 Leu/uL (NEGATIVE); NITRATE,URINE NEGATIVE (NEGATIVE); OCCULT BLOOD,URINE NEGATIVE (NEGATIVE)
[2024-10-14 12:19] LABS: ADD UA MICROSCOPIC YES; APPEARANCE,URINE HAZY (CLEAR)
[2024-10-14 12:21] LABS: SQUAMOUS EPITHELIAL CELL,UR MANY /HPF (0-2)
[2024-10-14 12:23] LABS: CREATININE 0.6 mg/dL (0.5-1.0); GLOMERULAR FILTR. RATE CALC 130.0 mL/min (>90); GLUCOSE,RANDOM 131.0 mg/dL (70-105); SODIUM SERUM 136.0 mmol/L (136-145); UREA NITROGEN, BLOOD 4.0 mg/dL (7-18)
--- NOTE | 2024-10-14 12:38 | ERN ---
ED Note History of Present Illness Stated Complaint: ABDOMINAL PAIN >20 WEEKS Chief Complaint: Abdominal Pain in Time Seen by MD: 11:29 Dictation: 23-year-old female presents from home for left lower abdominal pain left lower back pain dysuria. She reports being 21 weeks. She reports she was recently diagnosed with a urinary tract infection, she was prescribed Bactrim w hich he has been taking, but she reports that her symptoms are getting worse. She denies any contractions or vaginal bleeding. She reports increased frequency and dysuria and some left lower back pain. Allergies: Coded Allergies: No Known Drug Allergies (Unverified Allergy, Unknown, 07/27/22) Home Meds Active Scripts Ondansetron (Ondansetron Odt) 4 Mg Tab.rapdis, 4 MG PO Q6HPRN PRN for NAUSEA for 5 Days, #20 TAB Prov:KAYDEN SPENCER MD 09/21/24 Famotidine (Pepcid) 20 Mg Tablet, 1 TAB PO BID for 30 Days, #60 TAB 0 Refills Prov:IRENE CASTELLON 04/26/24 Ondansetron (Ondansetron Odt) 4 Mg Tab.rapdis, 4 MG PO BID for 7 Days, #14 TAB Prov:IRENE CASTELLON 04/26/24 Methylprednisolone (Medrol) 4 Mg Tab.ds.pk, 1 TAB PO AD for 6 Days, #21 TAB 0 Refills 6 on day 1 then reduce by one tablet daily until gone Prov:IRENE CASTELLON 04/06/24 Azithromycin (Azithromycin) 250 Mg Tablet, 1 TAB PO AD for 5 Days, #6 TAB 0 Refills 2 the first day followed by 1 for days 2-5 Prov:IRENE CASTELLON 04/06/24 Ibuprofen (Ibuprofen 800 mg Tab) 800 Mg Tab, 800 MG PO Q8H PRN for fever or pain, #30 TAB 0 Refills Prov:TERESITA SHELTON NP 02/09/24 Cyclobenzaprine HCl (Cyclobenzaprine HCl) 10 Mg Tablet, 1 TAB PO TID for muscle spasms for 10 Days, #30 TAB 0 Refills Prov:TERESITA SHELTON SECURITY ASSOCIATE 02/09/24 Ondansetron (Ondansetron Odt) 4 Mg Tab.rapdis, 1 TAB PO Q6HPRN PRN for nausea/vomiting for 3 Days, #9 TAB 0 Refills Prov:ERICKA CARDOZA DO 12/31/23 Dicyclomine HCl (Bentyl) 20 Mg Tab, 1 TAB PO BID for irritable bowel symptoms for 5 Days, #10 TAB 0 Refills Prov:KALPESH HERNANDEZ MD 12/25/23 Cyclobenzaprine HCl (Cyclobenzaprine HCl) 10 Mg Tablet, 10 MG PO Q6HPRN for MUSCLE SPASM, #30 TAB Prov:TERESITA SHELTON SECURITY ASSOCIATE 04/26/23 Hydroxyzine HCl (Hydroxyzine HCl) 25 Mg Tablet, 25 MG PO TIDP PRN for ANXIETY/AGITATION, #90 TAB 0 Refills Prov:WAI REYES PROPELLER LAYOUT WORKER 09/04/22 Reported Medications Benztropine Mesylate (Benztropine Mesylate) 0.5 Mg Tablet, 0.5 MG PO BID, TAB 09/02/22 Brexpiprazole (Rexulti) 0.5 Mg Tablet, 0.5 MG PO DAILY, TAB 09/01/22 Levetiracetam (Levetiracetam) 500 Mg Tablet, 500 MG PO BID, TAB 09/01/22 Propranolol HCl (Propranolol HCl) 40 Mg Tablet, 40 MG PO BID, TAB 09/01/22 Past Medical History Past Medical History: Bipolar, Other Additional Past Medical Hx: BEHAVIOR PROBLEMS, MENTAL DELAY Surgical History: None Social History: Lives with family, Other History: Not Applicable : 1 Para: 0 Aborts: 0 Review of System Dictation Constitutional: Negative for fever, positive chills Eyes: Negative for injury, pain,redness, and discharge ENT: Negative for injury,pain or swelling Cardiovascular: Negative for chest pain, palpitations, and edema Respiratory: Negative for shortness of breath, cough, wheezing, and pleuritic chest pain Abdomen/GI: Negative for vomiting, diarrhea, and constipation. Positive for nausea and pelvic pain Back: Negative for injury and pain : Negative for injury, bleeding and discharge. Positive for frequency MS/Extremity: Negative for injury and deformity Skin: Negative for rash, and discoloration Neuro: Negative for headache, weakness, numbness, tingling, and seizure Psych: Negative for suicide ideation, homicidal ideation, and hallucinations Allergy/Immunology: Negative for hives, rash, and allergies Initial Vital Sign VS Vital Signs Date Time Temp Pulse Resp B/P (MAP) Pulse Ox O2 Delivery O2 Flow Rate FiO2 10/14/24 11:25 98.2 110 20 126/70 98 Room Air 0 10/14/24 11:39 21 Physical Exam Dictation General: awake, alert, NAD Head/Face: Normocephalic, atraumatic Eyes: PERRL, EOMI, vision at baseline ENT: oral cavity clear, TMs clear, no signs of infection Neck: Trachea midline, supple, no nuchal rigidity Cardiovascular: RRR, normal S1/S2, No MRGs, no JVD Respiratory: CTAB, no respiratory distress, No rales or wheezes Abdomen: Soft, . Pain to left lower quadrant upon palpation. normal bowel sounds, no guarding or rebound. Skin: Warm, dry, normal turgor, no rash MS/Extremity: Pulses equal, no cyanosis, neurovascular intact, FROM Neuro: COAx4, GCS 15, strength 5/5, CN 2-12 intact, normal cerebellar exam, normal gait, Psych: Normal behavior, mood, and affect normal Results (Laboratory/Radiology) Laboratory/Radiology Laboratory Tests Test 10/14/24 11:35 10/14/24 12:07 Urine Color YELLOW (YELLOW) Urine Appearance HAZY (CLEAR) Urine pH 6.5 (5.0-8.0) Urine Specific [place] 1.014 (1.001-1.031) Urine Protein NEGATIVE mg/dL (NEGATIVE) Urine Glucose (UA) NEGATIVE mg/dL (NEGATIVE) Urine Ketones NEGATIVE mg/dL (NEGATIVE) Urine Occult Blood NEGATIVE (NEGATIVE) Urine Nitrate NEGATIVE (NEGATIVE) Urine Bilirubin NEGATIVE mg/dL (NEGATIVE) Urine Urobilinogen 3 mg/dL (0.2-1.0) H Urine Leukocyte Esterase 500 Terell/uL (NEGATIVE) H Urine RBC 2-5 /HPF (0-1) H Urine WBC 11-25 /HPF (0-1) H Urine Squamous Epithelial Cells MANY /HPF (0-2) Urine Bacteria FEW /HPF (None Seen) Urine HCG, Qualitative POSITIVE (NEGATIVE) H White Blood Count 13.3 K/uL (4.8-10.8) H Red Blood Count 4.27 MIL/uL (4.00-5.50) Hemoglobin 12.2 g/dL (12.0-16.0) Hematocrit 35.9 % (36-48) L Mean Corpuscular Volume 84.1 fL (79-99) Mean Corpuscular Hemoglobin 28.6 pg (27.0-33.0) Mean Corpuscular Hemoglobin Concent 34.0 g/dL (32.0-36.0) Red Cell Distribution Width 14.0 % (11.0-15.5) Platelet Count 439 K/uL (130-400) H Mean Platelet Volume 8.9 fL (7.5-10.5) Immature Granulocyte % (Auto) 1.4 % (0-1) H Neutrophils (%) (Auto) 76.6 % (40.0-77.0) Lymphocytes (%) (Auto) 15.1 % (21.0-51.0) L Monocytes (%) (Auto) 5.4 % (3.0-13.0) Eosinophils (%) (Auto) 1.1 % (0.0-8.0) Basophils (%) (Auto) 0.4 % (0.0-5.0) Neutrophils # (Auto) 10.2 K/uL (1.8-7.7) H Lymphocytes # (Auto) 2.0 K/uL (1.0-4.8) Monocytes # (Auto) 0.7 K/uL (0.1-1.0) Eosinophils # (Auto) 0.15 K/uL (0.00-0.70) Basophils # (Auto) 0.05 K/uL (0.00-0.20) Absolute Immature Granulocyte (auto 0.19 K/uL (0-1) Nucleated Red Blood Cells 0.2 % (0.0-0.19) H Sodium Level 136 mmol/L (136-145) Potassium Level 3.6 mmol/L (3.5-5.1) Chloride Level 103 mmol/L (101-111) Carbon Dioxide Level 21 mmol/L (21-32) Blood Urea Nitrogen 4 mg/dL (7-18) L Creatinine 0.6 mg/dL (0.5-1.0) Glomerular Filtration Rate Calc 130 mL/min (>90) Random Glucose 131 mg/dL (70-105) H Total Calcium 8.4 mg/dL (8.5-10.1) L ED Course ED Course Orders Procedure Category Date Status Time Cbc With Differential LAB 10/14/24 Complete 11:47 Urinalysis Profile LAB 10/14/24 Complete 11:47 Basic Metabolic Panel LAB 10/14/24 Complete 11:47 ,Urine Test LAB 10/14/24 Complete 12:01 Culture Urine DIMITRIS 10/14/24 In Process 12:19 0.9%Nacl 1000ml (Ns PHA 10/14/24 Complete 1000ml) 12:30 Ceftriaxone 1g Vial PHA 10/14/24 Complete (Rocephine 1g Inj) 12:30 Current Medications Medications (Trade) Dose Ordered Sig/Jagruti Route PRN Reason Start Time Stop Time Status Last Admin Dose Admin Ceftriaxone Sodium (ROCEphine 1G INJ) 1 gm ONCE ONCE IVPB 10/14/24 12:30 10/14/24 12:37 DC 10/14/24 12:55 Sodium Chloride 1,000 ml @ 0 mls/hr ONCE ONCE IV 10/14/24 12:30 10/14/24 12:37 DC 10/14/24 12:55 Vital Signs Date Time Temp Pulse Resp B/P (MAP) Pulse Ox O2 Delivery O2 Flow Rate FiO2 10/14/24 13:58 98.2 112 20 122/70 98 Room Air* 0 21 10/14/24 11:39 98.2 112 20 123/73 98 Room Air* 0 21 10/14/24 11:25 98.2 110 20 126/70 98 Room Air 0 Medical Decision Making MDM 23-year-old female presents to ER complaints of chills, pelvic pain, and at approximately 24 weeks per patient. Patient unknown of last menstrual. However seen by Ob September 25 and was approximately 21 weeks then. Patient states she continues with chills and urinary discomfort. Patient denies any vaginal bleeding Partner at bedside states she went to [facility] and was seen approximately a week ago for urinary infection. Was prescribed Bactrim. Patient's heart tones obtained at 1:48 a.m.. Will start IV fluids and Rocephin for urinary tract infection treatment. We will consider and talk to warehouse operations associate for transfer to [facility] for OB observation. Talked to doctor Valle at [facility] and accepted patient wants patient to go to L and D triage on arrival DX & DISP Disposition: Transfer (Transfer to [facility] Medical sensor L&D) Departure Impression: Primary Impression: Threatened Additional Impressions: UTI (urinary tract infection), , Pyelonephritis Condition: Stable Assign Patient to: Dr. Valle at [facility] OB Referrals: LINDEN ROTH MD (PCP) I performed a substantive portion of the visit. I have reviewed and personally made and approve the management plan that is documented in the notes by myself with GABRIELA/resident. I acknowledged full responsibility for the patient's management plan. NGUYỄN HANNON NP Oct 14, 2024 12:38 ERICKA CARDOZA DO Oct 14, 2024 15:52
[2024-10-14] MEDS: 0.9%NACL 1000ML 1,000 ML IV ONE (12:55)
--- NOTE | 2024-10-14 13:46 | NUR ---
report went to vm
[2024-10-14 13:58] VITALS: BP 122/70; PULSE 112; RESP 20; TEMP 98.3; O2SAT 98
== END 2024-10-14 14:04 ==
LOC: EDH 11:21
DX: O20.0 Threatened abortion (principal); O26.892 Other specified pregnancy related conditions, second trimester; N39.0 Urinary tract infection, site not specified; N12 Tubulo-interstitial nephritis, not specified as acute or chronic; Z79.899 Other long term (current) drug therapy
CPT/HCPCS: 99285; 96374; 80048; 85025; 87086; 81001; 81025; 36415; J7030; J0696